=== PATIENT | female | born 1940 | race African-American/Black ===

== ENCOUNTER 2016-09-18 10:59 | Emergency (ER) | payer OTHER ==
[~2016-09-18] VITALS: Ht 157.5 cm; Wt 59.0 kg
[2016-09-18] MEDS ORDERED: ASPIRIN 81MG TABLET PO ONE (11:15)
[2016-09-18 11:33] LABS: BASOPHILS % 0.7 % (0.0-2.0); EOSINOPHILS % 1.5 % (0.0-5.0); HEMATOCRIT. 31.9 % (36.0-48.0); HEMOGLOBIN. 10.1 g/dL (12.0-16.0); LYMPHOCYTES % 21.2 % (20.0-50.0); MEAN CORPUSCULAR HEMOGLOBIN 19.7 pg (28.0-32.0); MEAN CORPUSCULAR HGB CONC 31.5 g/dL (31.0-37.0); MEAN CORPUSCULAR VOLUME 62.4 fL (81.0-99.0); MONOCYTES % 6.9 % (2.0-8.0); NEUTROPHILS % 69.7 % (40.0-76.0); RED BLOOD CELL COUNT 5.11 mill/uL (4.2-5.4); RED CELL DISTRIBUTION WIDTH 21.4 % (11.6-14.6); WHITE BLOOD COUNT 10.9 x1000/uL (4.5-11.0)
[2016-09-18 11:38] LABS: DIFFERENTIAL COMMENT 1
[2016-09-18 11:39] LABS: ADD RBC MORPHOLOGY YES
[2016-09-18 11:41] LABS: INR 1.1; PROTHROMBIN TIME 11.8 sec
[2016-09-18 11:50] LABS: ALANINE AMINOTRANSFERASE 71 IU/L (13-61); ALBUMIN 3.6 g/dL (3.4-5.0); ANION GAP 13; CALCIUM 8.8 mg/dL (8.5-10.1); CARBON DIOXIDE 23 mEq/L (21-32); CHLORIDE 112 mEq/L (98-107); INDEX HEMOLYSI 1 (1-3); INDEX ICTERIC 1 (1-4); INDEX LIPEMIC 1 (1-3); NT PRO B-TYPE NATRIURETIC PEP 662 pg/mL (5-125); TROPONIN I < 0.02 ng/mL (0.00-0.04); UREA NITROGEN BLOOD 22 mg/dL (7-21); eGFR > 60 mL/min (>60)
[2016-09-18 12:08] LABS: ANISOCYTOSIS 1+; HYPOCHROMASIA 2+; PLATELET ESTIMATE DECREASED
[2016-09-18 12:09] LABS: GIANT PLATELETS 1+; OVALOCYTES 1+
[2016-09-18 12:10] LABS: ACANTHOCYTES 1+
[2016-09-18 12:13] LABS: PLATELET 82 x1000/uL (130-400)
[2016-09-18 14:00] VITALS: BP 134/78
== END 2016-09-18 14:13 | disposition short-term general hospital (02) ==
LOC: ER 11:07
DX: R07.9 Chest pain, unspecified (principal); I11.9 Hypertensive heart disease without heart failure; I25.2 Old myocardial infarction; R56.9 Unspecified convulsions; E05.90 Thyrotoxicosis, unspecified without thyrotoxic crisis or storm; Z88.8 Allergy status to other drugs, medicaments and biological substances
CPT/HCPCS: 36415; 71010; 80053; 82962; 83880; 84484; 85025; 85610; 93005; 99285